=== PATIENT | male | born 1960 | race African-American/Black ===

== ENCOUNTER 2020-03-17 14:03 | Emergency (ER) | payer OTHER ==
[~2020-03-17] VITALS: Ht 162.6 cm; Wt 68.9 kg
== END 2020-03-17 16:10 | disposition home or self-care (01) ==
LOC: ER 14:03
DX: L02.212 Cutaneous abscess of back [any part, except buttock and flank] (principal); L03.312 Cellulitis of back [any part except buttock and flank]; B95.61 Methicillin susceptible Staphylococcus aureus infection as the cause of diseases classified elsewhere